=== PATIENT | female | born 1945 | race Hispanic/Latino ===

== ENCOUNTER → 2017-12-13 | Outpatient (CLI) | payer OTHER, MEDICARE ==
[~2017-12-13] MED LIST: AEC81 PO; ATEN50TA PO; CANA1TAB4 PO; LEVO112T7 PO; LISI40TA4 PO; NAPR220T57 PO; REGADENOSON 0.4 MG/5 ML PF SYG IVP SCH; ROSU10TA PO
== END | disposition home or self-care (01) ==
LOC: SHCH 07:56
PROVIDERS: ATTEND Internal Medicine Cardiovascular Disease
DX: I20.9 Angina pectoris, unspecified (principal); R06.02 Shortness of breath
CPT/HCPCS: 78452; 93017; 96374; A9500 ×2; J2785

== ENCOUNTER 2022-02-16 06:20 | Inpatient (IN) | payer OTHER ==
[2022-02-16] VITALS (49 sets, daily range): BP systolic 102–168; BP diastolic 44–85
[~2022-02-16] VITALS: Ht 152.4 cm; Wt 62.1 kg
[~2022-02-16 06:20] MED LIST changes: -ATEN50TA PO; +ATOR40TA71 PO; -CANA1TAB4 PO; +CLOP75TA14 PO; +EMPA10TA PO; +GLIP1TAB5 PO; -LISI40TA4 PO; +METO25TA6 PO; -NAPR220T57 PO; -REGADENOSON 0.4 MG/5 ML PF SYG IVP SCH; +RIVA2.5T PO; -ROSU10TA PO
[2022-02-16] MEDS ORDERED: NITROGLYCERIN 1GM OINT 1 INCH/1GM TD ONE (06:28)
[2022-02-16] MEDS ORDERED: NITROGLYCERIN 0.4 MG SL TAB SL PRN ×2 (06:30→08:30)
[2022-02-16] MEDS: ASPIRIN 325MG TAB PO SCH ×2 (06:32→06:46)
[2022-02-16] MEDS ORDERED: MORPHINE 2 MG SYG ONE (06:33)
[2022-02-16] MEDS ORDERED: ONDANSETRON 4MG INJ ONE (06:33)
[2022-02-16 06:36] LABS: BASOPHILS % (AUTO) 0.5 % (0.0-5.0); EOSINOPHILS % (AUTO) 5.8 % (0.0-8.0); HEMATOCRIT 35.4 % (36-48); LYMPHOCYTES % (AUTO) 28.8 % (21.0-51.0); MEAN CORPUSCULAR HGB CONC 32.8 g/dL (32.0-36.0); MEAN CORPUSCULAR VOLUME 94.7 fL (79-99); MONOCYTES % (AUTO) 9.5 % (3.0-13.0); NEUTROPHILS % (AUTO) 55.1 % (40.0-77.0); PLATELET COUNT (AUTO) 169 K/uL (130-400); RED BLOOD CELL COUNT(AUTO) 3.74 MIL/uL (4.00-5.50); RED CELL DISTRIBUTION WIDTH 13.3 % (11.0-15.5); WHITE BLOOD COUNT (AUTO) 7.4 K/uL (4.8-10.8)
[2022-02-16 06:51] LABS: PROTHROMBIN TIME 10.9 SEC (9.6-11.6)
[2022-02-16 06:52] LABS: PARTIAL THROMBOPLASTIN TIME 24.8 SEC (26.3-35.5)
[2022-02-16] MEDS ORDERED: IOHEXOL 350 MG/ML 100ML INFUS..BTL IV ONE ×2 (06:57→07:27)
[2022-02-16] MEDS ORDERED: PHENYLEPHRINE HCL 10 MG/ML 1ML VIAL IV ONE (06:57)
[2022-02-16] MEDS ORDERED: MIDAZOLAM HCL 1 MG/ML 2ML VIAL ONE (06:58)
[2022-02-16] MEDS ORDERED: LIDOCAINE HCL 400MG/20ML VIAL ONE (06:58)
[2022-02-16] MEDS ORDERED: FENTANYL CITRATE PF 50 MCG/1 ML 2ML VIAL ONE (06:58)
[2022-02-16 06:59] LABS: ALBUMIN 3.1 g/dL (3.5-5.0); BILIRUBIN,TOTAL 0.3 mg/dL (0.2-1.0); CREATININE 0.6 mg/dL (0.5-1.5); POTASSIUM 3.9 mmol/L (3.5-5.1); TOTAL PROTEIN, SERUM 6.5 g/dL (6.0-8.3)
[2022-02-16] MEDS ORDERED: MORPHINE 2 MG SYG IVP SCH (07:00)
[2022-02-16] MEDS ORDERED: NITROGLYCERIN 1GM OINT 1 INCH/1GM TD SCH (07:00)
[2022-02-16] MEDS ORDERED: ONDANSETRON 4MG INJ IVP SCH (07:00)
[2022-02-16] MEDS ORDERED: NITROGLYCERIN 50MG VIAL ONE (07:04)
[2022-02-16 07:05] LABS: B-TYPE NATRIURETIC PEPTIDE 274 pg/mL (0-100)
[2022-02-16] MEDS ORDERED: HEPARIN 10,000 UNIT/10ML (1,000 UNIT/ML) VIAL ONE (07:07)
[2022-02-16] MEDS ORDERED: BIVALIRUDIN 250 MG/VIAL IV ONE ×2 (07:07→07:52)
[2022-02-16 07:12] LABS: CHOLESTEROL 217 mg/dL (<200); HDL CHOLESTEROL 45 mg/dL (35-85); LDL DIRECT 151 mg/dL (0-99); TRIGLYCERIDES 121 mg/dL (30-200)
[2022-02-16 07:24] LABS: APPEARANCE,URINE Cloudy (CLEAR); BILIRUBIN,URINE Negative (NEGATIVE); COLOR,URINE Yellow (YELLOW); GLUCOSE, URINE (UA) Negative (NEGATIVE); KETONES,URINE Negative (NEGATIVE); LEUKOCYTE ESTERASE ,URINE Moderate (NEGATIVE); NITRATE,URINE Negative (NEGATIVE); OCCULT BLOOD,URINE Negative (NEGATIVE); PROTEIN,URINE Trace mg/dL (NEGATIVE)
[2022-02-16] MEDS ORDERED: ATROPINE 1MG SYG IVP ONE (07:27)
[2022-02-16 07:35] LABS: BACTERIA,URINE Few /HPF (None Seen); RBC,URINE 0-1 /HPF (0-1)
[2022-02-16] MEDS ORDERED: TICAGRELOR 90 MG TABLET ONE (07:56)
[2022-02-16] MEDS ORDERED: ASPIRIN 81MG CHEW TAB ONE (07:56)
[2022-02-16] MEDS ORDERED: DEXTROSE 50%-WATER 50 ML DISP.SYRIN IV PRN (08:30)
[2022-02-16] MEDS ORDERED: 0.9%NACL 1000ML 1,000 ML IV SCH (08:30)
[2022-02-16] MEDS ORDERED: GLUCAGON 1MG KIT 1 MG ML IM PRN (08:30)
[2022-02-16] MEDS: TICAGRELOR 90 MG TABLET PO SCH ×2 (09:00→20:38)
[2022-02-16] MEDS: METOPROLOL TARTRATE 25 MG TAB PO SCH ×2 (09:51→20:38)
[2022-02-16] MEDS: ASPIRIN 81MG CHEW TAB PO SCH (09:52)
[2022-02-16] MEDS: LISINOPRIL 10 MG TABLET PO SCH (09:52)
[2022-02-16] MEDS ORDERED: GUAIFENESIN-DM 200/20 MG 10 ML PO PRN (10:00)
[2022-02-16] MEDS ORDERED: IPRATROPIUM/ALBUTEROL SULFATE 3 ML SOLUTION IH PRN (10:00)
[2022-02-16] MEDS: INSULIN HUMULIN R 100 UNIT/ML 3ML SQ SCH ×3 (11:30→20:40)
[2022-02-16] MEDS ORDERED: FUROSEMIDE 40MG VIAL IV SCH (13:00)
[2022-02-16] MEDS ORDERED: CEFTRIAXONE 1G VIAL IVP SCH (14:00)
[2022-02-16] MEDS: ATORVASTATIN 40 MG TABLET PO SCH (20:38)
[2022-02-17] VITALS (12 sets, daily range): BP systolic 99–125; BP diastolic 45–62
[2022-02-17 03:23] LABS: HEMATOCRIT 35.4 % (36-48); MEAN CORPUSCULAR HEMOGLOBIN 30.6 pg (27.0-33.0); MEAN CORPUSCULAR HGB CONC 32.8 g/dL (32.0-36.0); MEAN CORPUSCULAR VOLUME 93.4 fL (79-99); RED BLOOD CELL COUNT(AUTO) 3.79 MIL/uL (4.00-5.50); RED CELL DISTRIBUTION WIDTH 13.4 % (11.0-15.5); WHITE BLOOD COUNT (AUTO) 7.2 K/uL (4.8-10.8)
[2022-02-17 03:45] LABS: CREATININE 0.8 mg/dL (0.5-1.5); POTASSIUM 3.5 mmol/L (3.5-5.1)
[2022-02-17] MEDS: ASPIRIN 325MG TAB PO SCH (06:30)
[2022-02-17] MEDS: INSULIN HUMULIN R 100 UNIT/ML 3ML SQ SCH ×4 (06:43→19:59)
[2022-02-17] MEDS ORDERED: FUROSEMIDE 20MG VIAL IV SCH (07:30)
[2022-02-17] MEDS ORDERED: FUROSEMIDE 20MG VIAL ONE (07:59)
[2022-02-17] MEDS ORDERED: LIDOCAINE HCL-MPF 1% 2ML VIAL IV PRN (08:00)
[2022-02-17] MEDS ORDERED: POTASSIUM CHLORIDE 20MEQ/100ML 100 ML IV PRN (08:00)
[2022-02-17] MEDS: ASPIRIN 81MG CHEW TAB PO SCH (08:05)
[2022-02-17] MEDS: TICAGRELOR 90 MG TABLET PO SCH ×2 (08:05→19:57)
[2022-02-17] MEDS: METOPROLOL TARTRATE 25 MG TAB PO SCH ×2 (08:05→19:57)
[2022-02-17] MEDS: CEFTRIAXONE 1G VIAL IVP SCH (08:34)
[2022-02-17] MEDS: LISINOPRIL 10 MG TABLET PO SCH (09:00)
[2022-02-17] MEDS: RANOLAZINE 500 MG TAB.SR.12H PO SCH ×2 (09:28→19:56)
[2022-02-17] MEDS: POTASSIUM CHLORIDE 10% ELIXIR 20 MEQ/15 ML UDCUP PO PRN ×2 (09:58→17:32)
[2022-02-17] MEDS: FUROSEMIDE 20MG VIAL IV SCH (17:02)
[2022-02-17] MEDS: ATORVASTATIN 40 MG TABLET PO SCH (19:56)
[2022-02-18] MEDS: ASPIRIN 325MG TAB PO SCH (01:30)
[2022-02-18 03:43] VITALS: BP 100/53
[2022-02-18] MEDS: FUROSEMIDE 20MG VIAL IV SCH (04:20)
[2022-02-18] MEDS: KCL 20 MEQ ERTAB PO PRN (04:26)
[2022-02-18] MEDS: INSULIN HUMULIN R 100 UNIT/ML 3ML SQ SCH ×4 (06:07→21:54)
[2022-02-18 07:57] VITALS: BP 90/47
[2022-02-18] MEDS: CEFTRIAXONE 1G VIAL IVP SCH (08:03)
[2022-02-18] MEDS: METOPROLOL TARTRATE 25 MG TAB PO SCH ×2 (08:04→20:19)
[2022-02-18] MEDS: LISINOPRIL 10 MG TABLET PO SCH (08:04)
[2022-02-18] MEDS: TICAGRELOR 90 MG TABLET PO SCH ×2 (08:05→20:19)
[2022-02-18] MEDS: RANOLAZINE 500 MG TAB.SR.12H PO SCH ×2 (08:05→20:19)
[2022-02-18] MEDS: ASPIRIN 81MG CHEW TAB PO SCH (08:05)
[2022-02-18 12:00] VITALS: BP 103/58
[2022-02-18 16:00] VITALS: BP 99/51
[2022-02-18] MEDS: FUROSEMIDE 20 MG TABLET PO SCH (16:20)
[2022-02-18] MEDS ORDERED: DOCUSATE SODIUM 100 MG CAP PO ONE (16:33)
[2022-02-18] MEDS ORDERED: POLYETHYLENE GLYCOL 3350 17 GM POWD.PACK ONE (16:34)
[2022-02-18] MEDS ORDERED: DOCUSATE SODIUM 100 MG CAP PO SCH (17:30)
[2022-02-18] MEDS ORDERED: POLYETHYLENE GLYCOL 3350 17 GM POWD.PACK PO ONE (17:30)
[2022-02-18 19:18] VITALS: BP 134/58
[2022-02-18] MEDS: ATORVASTATIN 40 MG TABLET PO SCH (20:19)
[2022-02-18 23:07] VITALS: BP 110/59
[2022-02-19 03:40] VITALS: BP 139/74
[2022-02-19 04:09] LABS: BASOPHILS % (AUTO) 0.4 % (0.0-5.0); EOSINOPHILS % (AUTO) 6.4 % (0.0-8.0); LYMPHOCYTES % (AUTO) 16.6 % (21.0-51.0); MEAN CORPUSCULAR HEMOGLOBIN 29.7 pg (27.0-33.0); MEAN CORPUSCULAR HGB CONC 32.4 g/dL (32.0-36.0); MEAN CORPUSCULAR VOLUME 91.6 fL (79-99); MONOCYTES % (AUTO) 11.5 % (3.0-13.0); NEUTROPHILS % (AUTO) 64.8 % (40.0-77.0); PLATELET COUNT (AUTO) 162 K/uL (130-400); RED BLOOD CELL COUNT(AUTO) 4.04 MIL/uL (4.00-5.50); RED CELL DISTRIBUTION WIDTH 13.2 % (11.0-15.5); WHITE BLOOD COUNT (AUTO) 6.7 K/uL (4.8-10.8)
[2022-02-19 04:37] LABS: ALBUMIN 2.7 g/dL (3.5-5.0); BILIRUBIN,TOTAL 0.5 mg/dL (0.2-1.0); CREATININE 0.8 mg/dL (0.5-1.5); MAGNESIUM 1.9 mg/dL (1.80-2.40); PHOSPHORUS 4.5 mg/dL (2.5-4.9); POTASSIUM 3.6 mmol/L (3.5-5.1); TOTAL PROTEIN, SERUM 6.8 g/dL (6.0-8.3)
[2022-02-19] MEDS: POTASSIUM CHLORIDE 10% ELIXIR 20 MEQ/15 ML UDCUP PO PRN (04:54)
[2022-02-19] MEDS: ASPIRIN 325MG TAB PO SCH (05:25)
[2022-02-19] MEDS: INSULIN HUMULIN R 100 UNIT/ML 3ML SQ SCH ×2 (05:26→12:19)
[2022-02-19 08:00] VITALS: BP 121/67
[2022-02-19] MEDS: RANOLAZINE 500 MG TAB.SR.12H PO SCH (08:51)
[2022-02-19] MEDS: CEFTRIAXONE 1G VIAL IVP SCH (08:51)
[2022-02-19] MEDS: FUROSEMIDE 20 MG TABLET PO SCH ×2 (08:52→17:04)
[2022-02-19] MEDS: ASPIRIN 81MG CHEW TAB PO SCH (08:52)
[2022-02-19] MEDS: TICAGRELOR 90 MG TABLET PO SCH (08:53)
[2022-02-19] MEDS: KCL 20 MEQ ERTAB PO PRN (08:56)
[2022-02-19] MEDS ORDERED: LACTULOSE 20 GM/30 ML UDCUP PO SCH (09:00)
[2022-02-19] MEDS ORDERED: LISINOPRIL 10 MG TABLET PO SCH (09:00)
[2022-02-19] MEDS ORDERED: METOPROLOL SUCCINATE 50 MG TAB.SR.24H PO SCH (09:00)
[2022-02-19 11:38] VITALS: BP 137/69
[2022-02-19 16:00] VITALS: BP 123/75
[2022-02-19] MEDS ORDERED: FURO20TA4 PO (16:24)
[2022-02-19] MEDS ORDERED: TICA90TA PO (16:25)
[2022-02-19] MEDS ORDERED: METO-391 PO (16:25)
[2022-02-19] MEDS ORDERED: ASPI-1197 PO (16:26)
[2022-02-19] MEDS ORDERED: RANO500T3 PO (16:26)
[2022-02-19] MEDS ORDERED: LISI5TAB21 PO (16:26)
== END 2022-02-19 17:40 | disposition home or self-care (01) | DRG 248 ==
LOC: EDH 06:20 → EDHIP 06:40 → 2BH 08:45 → 2DH 02-17 17:28
PROVIDERS: ADMIT Internal Medicine Pulmonary Disease; ATTEND Internal Medicine Pulmonary Disease
PROC: 02703EZ Dilation of Coronary Artery, One Artery with Two Intraluminal Devices, Percutaneous Approach (ICD-10-PCS; principal; 2022-02-16)
PROC: 4A023N7 Measurement of Cardiac Sampling and Pressure, Left Heart, Percutaneous Approach (ICD-10-PCS; 2022-02-16)
PROC: B2111ZZ Fluoroscopy of Multiple Coronary Arteries using Low Osmolar Contrast (ICD-10-PCS; 2022-02-16)
PROC: B2151ZZ Fluoroscopy of Left Heart using Low Osmolar Contrast (ICD-10-PCS; 2022-02-16)
DX: I21.19 ST elevation (STEMI) myocardial infarction involving other coronary artery of inferior wall (principal); I50.43 Acute on chronic combined systolic (congestive) and diastolic (congestive) heart failure; N39.0 Urinary tract infection, site not specified; I11.0 Hypertensive heart disease with heart failure; E78.00 Pure hypercholesterolemia, unspecified; E78.5 Hyperlipidemia, unspecified; E03.9 Hypothyroidism, unspecified; E11.65 Type 2 diabetes mellitus with hyperglycemia; I25.10 Atherosclerotic heart disease of native coronary artery without angina pectoris; M19.90 Unspecified osteoarthritis, unspecified site; I25.2 Old myocardial infarction; E11.51 Type 2 diabetes mellitus with diabetic peripheral angiopathy without gangrene; Z79.899 Other long term (current) drug therapy; I87.2 Venous insufficiency (chronic) (peripheral); K21.9 Gastro-esophageal reflux disease without esophagitis; Z87.440 Personal history of urinary (tract) infections
CPT/HCPCS: 36415; 71045; 80048; 80053; 80061; 81001; 82550; 82948; 83735; 83874; 83880; 84100; 84484; 85025; 85027; 85610; 85730; 86850; 86900; 86901; 87088; 92928; 92929; 92941; 93005; 93306; 93356; 93458; 94640; 99156; 99157; C1725; C1769; C1887; C1894; G0378; J0461; J0583; J0696; J1644; J1815; J1940; J2250; J2370; J2405; J3010; J3490; J7030; Q9967

== ENCOUNTER 2022-05-15 10:55 | Observation (INO) | payer OTHER ==
[~2022-05-15] VITALS: Ht 152.4 cm; Wt 62.2 kg
[~2022-05-15 10:55] MED LIST changes: -AEC81 PO; +ASPI-1197 PO; -CLOP75TA14 PO; -EMPA10TA PO; -LEVO112T7 PO; +LISI5TAB21 PO; +METO-391 PO; -METO25TA6 PO; +NITR0.4T50 SL; -RIVA2.5T PO
[2022-05-15 11:48] LABS: BASOPHILS % (AUTO) 0.7 % (0.0-5.0); EOSINOPHILS % (AUTO) 3.3 % (0.0-8.0); HEMATOCRIT 36.1 % (36-48); LYMPHOCYTES % (AUTO) 28.4 % (21.0-51.0); MEAN CORPUSCULAR HEMOGLOBIN 29.8 pg (27.0-33.0); MEAN CORPUSCULAR HGB CONC 29.9 g/dL (32.0-36.0); MEAN CORPUSCULAR VOLUME 99.4 fL (79-99); MONOCYTES % (AUTO) 8.1 % (3.0-13.0); PLATELET COUNT (AUTO) 327 K/uL (130-400); RED BLOOD CELL COUNT(AUTO) 3.63 MIL/uL (4.00-5.50); RED CELL DISTRIBUTION WIDTH 16.1 % (11.0-15.5); WHITE BLOOD COUNT (AUTO) 7.5 K/uL (4.8-10.8)
[2022-05-15 11:56] LABS: POTASSIUM 4.6 mmol/L (3.5-5.1)
[2022-05-15 12:05] LABS: ALBUMIN 2.4 g/dL (3.5-5.0); BILIRUBIN,TOTAL 0.4 mg/dL (0.2-1.0); TOTAL PROTEIN, SERUM 6.5 g/dL (6.0-8.3)
[2022-05-15] MEDS ORDERED: ASPIRIN 325MG TAB PO ONE (13:00)
[2022-05-15] MEDS ORDERED: NITROGLYCERIN 1GM OINT 1 INCH/1GM TD ONE (13:00)
[2022-05-15 13:42] LABS: APPEARANCE,URINE Clear (CLEAR); BILIRUBIN,URINE Negative (NEGATIVE); COLOR,URINE Yellow (YELLOW); GLUCOSE, URINE (UA) Negative (NEGATIVE); KETONES,URINE Negative (NEGATIVE); LEUKOCYTE ESTERASE ,URINE Negative (NEGATIVE); NITRATE,URINE Negative (NEGATIVE); OCCULT BLOOD,URINE Negative (NEGATIVE); PH,URINE 6.5 (5.0-8.0); PROTEIN,URINE Negative (NEGATIVE); UROBILINOGEN,URINE 0.2 mg/dL (0.2-1.0)
[2022-05-15] MEDS ORDERED: ACETAMINOPHEN 650 MG SUPPOSITORY RC PRN (15:00)
[2022-05-15] MEDS ORDERED: LACTULOSE 20 GM/30 ML UDCUP PO PRN (15:00)
[2022-05-15] MEDS ORDERED: HYDROCODONE/ACETAMINOPHEN 5/325 MG TAB PO PRN (15:00)
[2022-05-15] MEDS ORDERED: HYDRALAZINE 20MG/ML VIAL IV PRN (15:00)
[2022-05-15] MEDS ORDERED: TEMAZEPAM 15 MG CAPSULE PO PRN (15:00)
[2022-05-15] MEDS ORDERED: DOCUSATE SODIUM 100 MG CAP PO PRN (15:00)
[2022-05-15] MEDS ORDERED: ALBUTEROL 0.083% 2.5 MG/3 ML INH IH PRN (15:00)
[2022-05-15] MEDS ORDERED: CLONIDINE HCL 0.1 MG TABLET PO PRN (15:00)
[2022-05-15] MEDS ORDERED: ACETAMINOPHEN 325 MG TAB PO PRN (15:00)
[2022-05-15] MEDS ORDERED: ONDANSETRON 4MG INJ IVP PRN (15:00)
[2022-05-15] MEDS ORDERED: LABETALOL 20MG SYG IV PRN (15:00)
[2022-05-15] MEDS: BUMETANIDE 1MG/4ML VIAL IVP SCH ×2 (16:01→21:25)
[2022-05-15] MEDS: INSULIN HUMULIN R 100 UNIT/ML 3ML SQ SCH ×2 (16:30→21:00)
[2022-05-15 17:44] VITALS: BP 100/58
[2022-05-15 20:00] VITALS: BP 98/62
[2022-05-15] MEDS: MIDODRINE HCL 5 MG TABLET PO SCH (21:35)
[2022-05-16 03:42] LABS: BASOPHILS % (AUTO) 0.6 % (0.0-5.0); EOSINOPHILS % (AUTO) 3.5 % (0.0-8.0); HEMATOCRIT 30.8 % (36-48); MEAN CORPUSCULAR HEMOGLOBIN 30.2 pg (27.0-33.0); MEAN CORPUSCULAR HGB CONC 30.5 g/dL (32.0-36.0); MONOCYTES % (AUTO) 11.1 % (3.0-13.0); NEUTROPHILS % (AUTO) 57.5 % (40.0-77.0); PLATELET COUNT (AUTO) 314 K/uL (130-400); RED BLOOD CELL COUNT(AUTO) 3.11 MIL/uL (4.00-5.50); WHITE BLOOD COUNT (AUTO) 6.3 K/uL (4.8-10.8)
[2022-05-16 04:00] LABS: CREATININE 1.1 mg/dL (0.5-1.5); MAGNESIUM 1.8 mg/dL (1.80-2.40); PHOSPHORUS 4.2 mg/dL (2.5-4.9); POTASSIUM 4.7 mmol/L (3.5-5.1)
[2022-05-16 04:23] LABS: B-TYPE NATRIURETIC PEPTIDE 1630 pg/mL (0-100)
[2022-05-16] MEDS: INSULIN HUMULIN R 100 UNIT/ML 3ML SQ SCH ×4 (06:54→20:37)
[2022-05-16 07:15] VITALS: BP 105/67
[2022-05-16] MEDS: PANTOPRAZOLE 40 MG TAB DR PO SCH (08:56)
[2022-05-16] MEDS: SIMVASTATIN 20 MG TABLET PO SCH (08:56)
[2022-05-16] MEDS: MIDODRINE HCL 5 MG TABLET PO SCH ×3 (08:57→20:37)
[2022-05-16] MEDS: BUMETANIDE 1MG/4ML VIAL IVP SCH ×2 (08:57→20:36)
[2022-05-16] MEDS: ASPIRIN 81MG CHEW TAB PO SCH (08:57)
[2022-05-16] MEDS: ENOXAPARIN SODIUM 40 MG/0.4 ML SYRINGE SQ SCH (08:58)
[2022-05-16] MEDS ORDERED: IOHEXOL 350 MG/ML 100ML INFUS..BTL IV ONE (10:10)
[2022-05-16 11:15] VITALS: BP 97/33
[2022-05-16 15:15] VITALS: BP 106/56
[2022-05-16 20:09] VITALS: BP 98/58
[2022-05-17] VITALS: BP 84/56
[2022-05-17 04:00] VITALS: BP 98/59
[2022-05-17] MEDS: INSULIN HUMULIN R 100 UNIT/ML 3ML SQ SCH ×3 (06:37→16:29)
[2022-05-17 08:00] VITALS: BP 96/59
[2022-05-17 08:25] LABS: CREATININE 1.1 mg/dL (0.5-1.5); MAGNESIUM 1.7 mg/dL (1.80-2.40); POTASSIUM 4.1 mmol/L (3.5-5.1)
[2022-05-17] MEDS: PANTOPRAZOLE 40 MG TAB DR PO SCH (09:28)
[2022-05-17] MEDS: SIMVASTATIN 20 MG TABLET PO SCH (09:29)
[2022-05-17] MEDS: BUMETANIDE 1MG/4ML VIAL IVP SCH (09:29)
[2022-05-17] MEDS: MIDODRINE HCL 5 MG TABLET PO SCH ×2 (09:29→14:31)
[2022-05-17] MEDS: ASPIRIN 81MG CHEW TAB PO SCH (09:29)
[2022-05-17] MEDS: ENOXAPARIN SODIUM 40 MG/0.4 ML SYRINGE SQ SCH (09:31)
[2022-05-17] MEDS ORDERED: BUME1TAB7 PO (10:06)
[2022-05-17] MEDS ORDERED: METO25TA6 PO (10:07)
[2022-05-17] MEDS ORDERED: LISINOPRIL 5 MG TABLET PO SCH (10:30)
[2022-05-17] MEDS ORDERED: METOPROLOL TARTRATE 25 MG TAB PO SCH (10:30)
[2022-05-17 11:39] VITALS: BP 105/69
[2022-05-17] MEDS ORDERED: Midodrine Hcl PO (14:42)
== END 2022-05-17 17:30 | disposition home or self-care (01) ==
LOC: EDH 10:55 → EDHIP 14:47 → 4CH 17:15 → 3CH 05-17 11:44
PROVIDERS: ADMIT Internal Medicine Critical Care Medicine; ATTEND Internal Medicine Critical Care Medicine
DX: U07.1 COVID-19 (principal); I50.43 Acute on chronic combined systolic (congestive) and diastolic (congestive) heart failure; I25.10 Atherosclerotic heart disease of native coronary artery without angina pectoris; I95.9 Hypotension, unspecified; I24.9 Acute ischemic heart disease, unspecified; E78.5 Hyperlipidemia, unspecified; E11.9 Type 2 diabetes mellitus without complications; E78.00 Pure hypercholesterolemia, unspecified; E87.70 Fluid overload, unspecified; Z95.1 Presence of aortocoronary bypass graft; Z79.899 Other long term (current) drug therapy
CPT/HCPCS: 36415 ×3; 71045; 71270; 80048 ×2; 80053; 81003; 82948 ×9; 83735 ×2; 83880 ×3; 84100; 84145; 84484 ×4; 85025 ×2; 85378; 87635; 87804 ×2; 93005; 94664; 94760 ×2; 96372 ×2; 96374; 96375; 96376 ×3; 97039; 97161; 99285; C9803; G0378 ×49; J1650 ×2; J2405; J3490 ×5; Q9967

== ENCOUNTER 2022-05-23 10:08 | Inpatient (IN) | payer OTHER ==
[~2022-05-23] VITALS: Ht 152.4 cm; Wt 58.1 kg
[~2022-05-23 10:08] MED LIST changes: +BUME1TAB7 PO; -LISI5TAB21 PO; -METO-391 PO; +Midodrine Hcl PO
[2022-05-23] MEDS ORDERED: ONDANSETRON 4MG INJ ONE (10:26)
[2022-05-23] MEDS ORDERED: ONDANSETRON 4MG INJ IVP ONE (10:30)
[2022-05-23] MEDS ORDERED: BUMETANIDE 1MG/4ML VIAL ONE (10:32)
[2022-05-23 10:45] LABS: ABG BASE EXCESS -5.3 mmol/L (-2.0-3.0); ABG HCO3 19.3 mmol/L (21.0-28.0); ABG OXYGEN SATURATION 86.1 % (95.0-99.0); ABG PCO2 34 mmHg (32-45)
[2022-05-23 10:45] LABS: HEMATOCRIT 33.7 % (36-48); MEAN CORPUSCULAR HEMOGLOBIN 29.8 pg (27.0-33.0); MEAN CORPUSCULAR HGB CONC 30.3 g/dL (32.0-36.0); MEAN CORPUSCULAR VOLUME 98.5 fL (79-99); MONOCYTES % (AUTO) 8.3 % (3.0-13.0); NEUTROPHILS % (AUTO) 56.3 % (40.0-77.0); PLATELET COUNT (AUTO) 275 K/uL (130-400); RED BLOOD CELL COUNT(AUTO) 3.42 MIL/uL (4.00-5.50); RED CELL DISTRIBUTION WIDTH 15.6 % (11.0-15.5); WHITE BLOOD COUNT (AUTO) 8.2 K/uL (4.8-10.8)
[2022-05-23 10:59] LABS: CREATININE 1.6 mg/dL (0.5-1.5)
[2022-05-23 11:04] LABS: ALBUMIN 2.7 g/dL (3.5-5.0); MAGNESIUM 1.8 mg/dL (1.80-2.40); TOTAL PROTEIN, SERUM 6.9 g/dL (6.0-8.3)
[2022-05-23 11:13] LABS: APPEARANCE,URINE CLEAR (CLEAR); BILIRUBIN,URINE NEGATIVE (NEGATIVE); COLOR,URINE YELLOW (YELLOW); GLUCOSE, URINE (UA) NEGATIVE (NEGATIVE); KETONES,URINE NEGATIVE (NEGATIVE); LEUKOCYTE ESTERASE ,URINE TRACE (NEGATIVE); NITRATE,URINE NEGATIVE (NEGATIVE); OCCULT BLOOD,URINE NEGATIVE (NEGATIVE); PROTEIN,URINE NEGATIVE (NEGATIVE); UROBILINOGEN,URINE 0.2 mg/dL (0.2-1.0)
[2022-05-23 11:50] LABS: B-TYPE NATRIURETIC PEPTIDE 2450 pg/mL (0-100)
[2022-05-23 11:51] LABS: BACTERIA,URINE Few /HPF (None Seen); MUCUS,URINE Few LPF (None Seen); RBC,URINE 0-1 /HPF (0-1); SQUAMOUS EPITHELIAL CELL,UR Few /HPF (0-2)
[2022-05-23 11:52] LABS: TRANSITIONAL EPI CELLS,URINE Few /HPF (None Seen)
[2022-05-23 12:24] LABS: INR 0.96 (0.85-1.15); PROTHROMBIN TIME 10.5 SEC (9.6-11.6)
[2022-05-23 12:26] LABS: PARTIAL THROMBOPLASTIN TIME 24.8 SEC (26.3-35.5)
[2022-05-23] MEDS ORDERED: DEXTROSE 50%-WATER 50 ML DISP.SYRIN IV PRN (13:30)
[2022-05-23] MEDS ORDERED: ONDANSETRON 4MG INJ IVP PRN (13:30)
[2022-05-23] MEDS ORDERED: LIDOCAINE HCL-MPF 1% 2ML VIAL IV PRN ×2 (13:30)
[2022-05-23] MEDS ORDERED: ACETAMINOPHEN 650 MG SUPPOSITORY RC PRN (13:30)
[2022-05-23] MEDS ORDERED: GLUCAGON 1MG KIT 1 MG ML IM PRN (13:30)
[2022-05-23] MEDS ORDERED: ACETAMINOPHEN 325 MG TAB PO PRN (13:30)
[2022-05-23] MEDS ORDERED: MORPHINE 2 MG SYG IVP PRN (13:30)
[2022-05-23] MEDS ORDERED: POTASSIUM CHLORIDE 20MEQ/100ML 100 ML IV PRN ×2 (13:30)
[2022-05-23] MEDS ORDERED: CLONIDINE HCL 0.1 MG TABLET PO PRN (13:30)
[2022-05-23] MEDS ORDERED: POTASSIUM CHLORIDE 10% ELIXIR 20 MEQ/15 ML UDCUP PO PRN (13:30)
[2022-05-23 15:21] VITALS: BP 97/48
[2022-05-23] MEDS: INSULIN HUMULIN R 100 UNIT/ML 3ML SQ SCH ×2 (16:30→21:00)
[2022-05-23 16:40] LABS: CREATININE 1.5 mg/dL (0.5-1.5); POTASSIUM 5.7 mmol/L (3.5-5.1)
[2022-05-23 19:30] VITALS: BP 114/73
[2022-05-23] MEDS: ATORVASTATIN 40 MG TABLET PO SCH (20:25)
[2022-05-23] MEDS: BUMETANIDE 1MG/4ML VIAL IVP SCH (20:25)
[2022-05-23] MEDS: METOPROLOL TARTRATE 25 MG TAB PO SCH (20:26)
[2022-05-23] MEDS: ENOXAPARIN SODIUM 60 MG/0.6 ML SQ SCH (20:31)
[2022-05-23] MEDS ORDERED: METOPROLOL TARTRATE 25 MG TAB PO SCH (21:00)
[2022-05-24] VITALS (7 sets, daily range): BP systolic 87–118; BP diastolic 53–70
[2022-05-24 02:03] LABS: BASOPHILS % (AUTO) 1.4 % (0.0-5.0); EOSINOPHILS % (AUTO) 1.4 % (0.0-8.0); LYMPHOCYTES % (AUTO) 25.3 % (21.0-51.0); MEAN CORPUSCULAR HEMOGLOBIN 29.9 pg (27.0-33.0); MEAN CORPUSCULAR HGB CONC 30.6 g/dL (32.0-36.0); MEAN CORPUSCULAR VOLUME 97.5 fL (79-99); MONOCYTES % (AUTO) 10.2 % (3.0-13.0); NEUTROPHILS % (AUTO) 61.4 % (40.0-77.0); PLATELET COUNT (AUTO) 234 K/uL (130-400); RED BLOOD CELL COUNT(AUTO) 3.18 MIL/uL (4.00-5.50); RED CELL DISTRIBUTION WIDTH 15.5 % (11.0-15.5); WHITE BLOOD COUNT (AUTO) 5.9 K/uL (4.8-10.8)
[2022-05-24 02:47] LABS: CREATININE 1.6 mg/dL (0.5-1.5); MAGNESIUM 1.7 mg/dL (1.80-2.40); PHOSPHORUS 4.7 mg/dL (2.5-4.9); POTASSIUM 5.1 mmol/L (3.5-5.1)
[2022-05-24] MEDS: INSULIN HUMULIN R 100 UNIT/ML 3ML SQ SCH ×4 (06:48→20:14)
[2022-05-24] MEDS: METOPROLOL TARTRATE 25 MG TAB PO SCH ×2 (08:49→20:18)
[2022-05-24] MEDS: ASPIRIN 81 MG EC TAB PO SCH (08:49)
[2022-05-24] MEDS: ENOXAPARIN SODIUM 60 MG/0.6 ML SQ SCH (08:50)
[2022-05-24] MEDS: BUMETANIDE 1MG/4ML VIAL IVP SCH ×2 (08:50→16:55)
[2022-05-24] MEDS ORDERED: FUROSEMIDE 20MG VIAL IV SCH (10:00)
[2022-05-24] MEDS: MAGNESIUM 2GM PREMIX 50ML 50 ML IV PRN (10:38)
[2022-05-24] MEDS: CLOPIDOGREL 75MG TAB PO SCH (16:55)
[2022-05-24] MEDS: ATORVASTATIN 40 MG TABLET PO SCH (20:21)
[2022-05-25] VITALS (7 sets, daily range): BP systolic 91–111; BP diastolic 50–71
[2022-05-25] MEDS: BUMETANIDE 1MG/4ML VIAL IVP SCH ×3 (01:27→18:40)
[2022-05-25 04:21] LABS: BASOPHILS % (AUTO) 1.3 % (0.0-5.0); EOSINOPHILS % (AUTO) 3.5 % (0.0-8.0); HEMATOCRIT 30.4 % (36-48); LYMPHOCYTES % (AUTO) 34.2 % (21.0-51.0); MEAN CORPUSCULAR HEMOGLOBIN 30.4 pg (27.0-33.0); MEAN CORPUSCULAR HGB CONC 31.3 g/dL (32.0-36.0); MEAN CORPUSCULAR VOLUME 97.1 fL (79-99); MONOCYTES % (AUTO) 12.2 % (3.0-13.0); NEUTROPHILS % (AUTO) 48.4 % (40.0-77.0); PLATELET COUNT (AUTO) 246 K/uL (130-400); RED BLOOD CELL COUNT(AUTO) 3.13 MIL/uL (4.00-5.50); RED CELL DISTRIBUTION WIDTH 15.4 % (11.0-15.5); WHITE BLOOD COUNT (AUTO) 5.5 K/uL (4.8-10.8)
[2022-05-25 04:38] LABS: CREATININE 1.5 mg/dL (0.5-1.5); MAGNESIUM 1.9 mg/dL (1.80-2.40); POTASSIUM 3.7 mmol/L (3.5-5.1)
[2022-05-25] MEDS: INSULIN HUMULIN R 100 UNIT/ML 3ML SQ SCH ×4 (05:45→20:23)
[2022-05-25] MEDS: METOPROLOL TARTRATE 25 MG TAB PO SCH (08:33)
[2022-05-25] MEDS: ASPIRIN 81 MG EC TAB PO SCH (08:33)
[2022-05-25] MEDS: CLOPIDOGREL 75MG TAB PO SCH (08:34)
[2022-05-25] MEDS: ENOXAPARIN SODIUM 60 MG/0.6 ML SQ SCH (08:34)
[2022-05-25] MEDS: MAGNESIUM 2GM PREMIX 50ML 50 ML IV PRN (08:35)
[2022-05-25] MEDS: CARVEDILOL 3.125 MG TABLET PO SCH ×3 (11:30→20:22)
[2022-05-25] MEDS: SACUBITRIL/VALSARTAN 1 EACH TABLET PO SCH (20:36)
[2022-05-25] MEDS: ATORVASTATIN 40 MG TABLET PO SCH (20:36)
[2022-05-26] VITALS (8 sets, daily range): BP systolic 82–106; BP diastolic 40–63
[2022-05-26] MEDS: BUMETANIDE 1MG/4ML VIAL IVP SCH ×2 (01:30→09:59)
[2022-05-26 03:56] LABS: BASOPHILS % (AUTO) 0.8 % (0.0-5.0); EOSINOPHILS % (AUTO) 1.7 % (0.0-8.0); HEMATOCRIT 33.1 % (36-48); MEAN CORPUSCULAR HEMOGLOBIN 29.5 pg (27.0-33.0); MEAN CORPUSCULAR HGB CONC 31.4 g/dL (32.0-36.0); MEAN CORPUSCULAR VOLUME 93.8 fL (79-99); MONOCYTES % (AUTO) 10.8 % (3.0-13.0); NEUTROPHILS % (AUTO) 59.3 % (40.0-77.0); PLATELET COUNT (AUTO) 246 K/uL (130-400); RED BLOOD CELL COUNT(AUTO) 3.53 MIL/uL (4.00-5.50); RED CELL DISTRIBUTION WIDTH 15.1 % (11.0-15.5); WHITE BLOOD COUNT (AUTO) 5.2 K/uL (4.8-10.8)
[2022-05-26 04:14] LABS: CREATININE 1.2 mg/dL (0.5-1.5); POTASSIUM 2.9 mmol/L (3.5-5.1)
[2022-05-26] MEDS: INSULIN HUMULIN R 100 UNIT/ML 3ML SQ SCH ×4 (05:59→21:00)
[2022-05-26] MEDS: CARVEDILOL 3.125 MG TABLET PO SCH (09:00)
[2022-05-26] MEDS: ASPIRIN 81 MG EC TAB PO SCH (09:59)
[2022-05-26] MEDS: CLOPIDOGREL 75MG TAB PO SCH (09:59)
[2022-05-26] MEDS: ENOXAPARIN SODIUM 60 MG/0.6 ML SQ SCH (09:59)
[2022-05-26] MEDS: KCL 20 MEQ ERTAB PO PRN ×2 (15:13→17:43)
[2022-05-26] MEDS: SACUBITRIL/VALSARTAN 1 EACH TABLET PO SCH (20:04)
[2022-05-26] MEDS: BUMETANIDE 1 MG TAB PO SCH (21:43)
[2022-05-26] MEDS: ATORVASTATIN 40 MG TABLET PO SCH (21:43)
[2022-05-27 03:42] VITALS: BP 104/64
[2022-05-27 04:22] LABS: BASOPHILS % (AUTO) 0.9 % (0.0-5.0); EOSINOPHILS % (AUTO) 2.5 % (0.0-8.0); HEMATOCRIT 31.5 % (36-48); LYMPHOCYTES % (AUTO) 41.1 % (21.0-51.0); MEAN CORPUSCULAR HEMOGLOBIN 30.4 pg (27.0-33.0); MEAN CORPUSCULAR HGB CONC 31.7 g/dL (32.0-36.0); MEAN CORPUSCULAR VOLUME 95.7 fL (79-99); MONOCYTES % (AUTO) 11.4 % (3.0-13.0); NEUTROPHILS % (AUTO) 43.9 % (40.0-77.0); PLATELET COUNT (AUTO) 254 K/uL (130-400); RED BLOOD CELL COUNT(AUTO) 3.29 MIL/uL (4.00-5.50); RED CELL DISTRIBUTION WIDTH 15.1 % (11.0-15.5); WHITE BLOOD COUNT (AUTO) 5.6 K/uL (4.8-10.8)
[2022-05-27 04:31] LABS: CREATININE 1.4 mg/dL (0.5-1.5); MAGNESIUM 1.7 mg/dL (1.80-2.40)
[2022-05-27] MEDS: MAGNESIUM 2GM PREMIX 50ML 50 ML IV PRN (05:15)
[2022-05-27] MEDS: INSULIN HUMULIN R 100 UNIT/ML 3ML SQ SCH (06:01)
[2022-05-27] MEDS: CLOPIDOGREL 75MG TAB PO SCH (08:23)
[2022-05-27] MEDS: BUMETANIDE 1 MG TAB PO SCH (08:23)
[2022-05-27] MEDS: ASPIRIN 81 MG EC TAB PO SCH (08:23)
[2022-05-27] MEDS: ENOXAPARIN SODIUM 60 MG/0.6 ML SQ SCH (08:24)
[2022-05-27 08:40] VITALS: BP 86/52
== END 2022-05-27 11:20 | disposition home or self-care (01) | DRG 291 ==
LOC: EDH 10:08 → EDHIP 13:03 → OBSVTOIN 13:03 → 2DH 15:22
PROVIDERS: ADMIT Internal Medicine; ATTEND Internal Medicine
PROC: 5A09357 Assistance with Respiratory Ventilation, Less than 24 Consecutive Hours, Continuous Positive Airway Pressure (ICD-10-PCS; principal; 2022-05-23)
DX: I13.0 Hypertensive heart and chronic kidney disease with heart failure and stage 1 through stage 4 chronic kidney disease, or unspecified chronic kidney disease (principal); I50.43 Acute on chronic combined systolic (congestive) and diastolic (congestive) heart failure; E87.2 Acidosis; I34.0 Nonrheumatic mitral (valve) insufficiency; I25.10 Atherosclerotic heart disease of native coronary artery without angina pectoris; E11.51 Type 2 diabetes mellitus with diabetic peripheral angiopathy without gangrene; E78.00 Pure hypercholesterolemia, unspecified; I25.5 Ischemic cardiomyopathy; N18.30 Chronic kidney disease, stage 3 unspecified; E11.65 Type 2 diabetes mellitus with hyperglycemia; E11.22 Type 2 diabetes mellitus with diabetic chronic kidney disease; I87.2 Venous insufficiency (chronic) (peripheral); E03.9 Hypothyroidism, unspecified; Z95.5 Presence of coronary angioplasty implant and graft; Z20.822 Contact with and (suspected) exposure to COVID-19; Z88.8 Allergy status to other drugs, medicaments and biological substances; Z79.899 Other long term (current) drug therapy; Z95.1 Presence of aortocoronary bypass graft; Z79.82 Long term (current) use of aspirin; I25.2 Old myocardial infarction
CPT/HCPCS: 36415; 36600; 71045; 80048; 80053; 81001; 82435; 82550; 82803; 82947; 82948; 83605; 83615; 83735; 83880; 84100; 84132; 84145; 84155; 84295; 84484; 85018; 85025; 85610; 85730; 87077; 87088; 87186; 87635; 87804; 93005; 93306; 93356; 94660; 99291; C9803; G0378; J1650; J1815; J2405; J3475; J3480; J3490

== ENCOUNTER → 2022-06-29 | Outpatient (CLI) | payer OTHER, MEDICARE ==
[~2022-06-29] MED LIST changes: -BUME1TAB7 PO; -Midodrine Hcl PO
[2022-06-29 12:56] LABS: CREATININE 1.1 mg/dL (0.5-1.5)
[2022-06-29 13:04] LABS: POTASSIUM 3.9 mmol/L (3.5-5.1)
== END | disposition home or self-care (01) ==
LOC: LAB 10:26
PROVIDERS: ATTEND Internal Medicine Cardiovascular Disease
DX: I50.41 Acute combined systolic (congestive) and diastolic (congestive) heart failure (principal)
CPT/HCPCS: 36415; 80048; 83880

== ENCOUNTER → 2022-09-14 | Outpatient (CLI) | payer OTHER, MEDICARE | END | disposition home or self-care (01) | LOC: SHCH 13:22 | PROVIDERS: ATTEND Internal Medicine Cardiovascular Disease | DX: I87.2 Venous insufficiency (chronic) (peripheral) (principal); I70.293 Other atherosclerosis of native arteries of extremities, bilateral legs | CPT/HCPCS: 93925; 93970 ==

== ENCOUNTER → 2022-12-05 | Outpatient (CLI) | payer OTHER, MEDICARE ==
[2022-12-05 14:53] LABS: BASOPHILS % (AUTO) 0.4 % (0.0-5.0); EOSINOPHILS % (AUTO) 6.1 % (0.0-8.0); HEMATOCRIT 34.4 % (36-48); LYMPHOCYTES % (AUTO) 14.5 % (21.0-51.0); MEAN CORPUSCULAR HEMOGLOBIN 26.6 pg (27.0-33.0); MEAN CORPUSCULAR HGB CONC 29.9 g/dL (32.0-36.0); MEAN CORPUSCULAR VOLUME 88.9 fL (79-99); MONOCYTES % (AUTO) 7.9 % (3.0-13.0); NEUTROPHILS % (AUTO) 70.8 % (40.0-77.0); PLATELET COUNT (AUTO) 316 K/uL (130-400); RED BLOOD CELL COUNT(AUTO) 3.87 MIL/uL (4.00-5.50); RED CELL DISTRIBUTION WIDTH 15.7 % (11.0-15.5); WHITE BLOOD COUNT (AUTO) 6.8 K/uL (4.8-10.8)
[2022-12-05 15:01] LABS: INR 0.96 (0.85-1.15); PROTHROMBIN TIME 10.5 SEC (9.6-11.6)
[2022-12-05 15:03] LABS: PARTIAL THROMBOPLASTIN TIME 26.5 SEC (26.3-35.5)
[2022-12-05 15:13] LABS: CREATININE 1.2 mg/dL (0.5-1.5); POTASSIUM 3.4 mmol/L (3.5-5.1)
== END | disposition home or self-care (01) ==
LOC: LAB 12:51
PROVIDERS: ATTEND Internal Medicine Cardiovascular Disease
DX: I21.19 ST elevation (STEMI) myocardial infarction involving other coronary artery of inferior wall (principal); E11.9 Type 2 diabetes mellitus without complications; I50.41 Acute combined systolic (congestive) and diastolic (congestive) heart failure
CPT/HCPCS: 36415; 80048; 83880; 85025; 85610; 85730

== ENCOUNTER → 2024-03-06 | Outpatient (CLI) | payer OTHER, MEDICARE | END | disposition home or self-care (01) | LOC: SHCH 12:18 | PROVIDERS: ATTEND Internal Medicine Cardiovascular Disease | DX: I73.9 Peripheral vascular disease, unspecified (principal); I87.2 Venous insufficiency (chronic) (peripheral); R06.02 Shortness of breath; R60.9 Edema, unspecified | CPT/HCPCS: 93306; 93925; 93970 ==

== ENCOUNTER 2024-05-26 09:36 | Observation (INO) | payer OTHER, MEDICARE ==
[~2024-05-26] VITALS: Ht 147.3 cm; Wt 59.9 kg
[2024-05-26 11:32] LABS: BASOPHILS # (AUTO) 0.05 K/uL (0.00-0.20); BASOPHILS % (AUTO) 0.9 % (0.0-5.0); EOSINOPHILS % (AUTO) 1.9 % (0.0-8.0); HEMATOCRIT 38.9 % (36-48); IMMATURE GRANULOCYTE ABSOLUTE 0.01 K/uL (0-1); LYMPHOCYTES % (AUTO) 18.2 % (21.0-51.0); MEAN CORPUSCULAR HEMOGLOBIN 32.1 pg (27.0-33.0); MEAN CORPUSCULAR HGB CONC 31.9 g/dL (32.0-36.0); MEAN CORPUSCULAR VOLUME 100.8 fL (79-99); MONOCYTES # (AUTO) 0.5 K/uL (0.1-1.0); MONOCYTES % (AUTO) 8.6 % (3.0-13.0); NEUTROPHILS # (AUTO) 3.7 K/uL (1.8-7.7); NEUTROPHILS % (AUTO) 70.2 % (40.0-77.0); PLATELET COUNT (AUTO) 217 K/uL (130-400); RED BLOOD CELL COUNT(AUTO) 3.86 MIL/uL (4.00-5.50); WHITE BLOOD COUNT (AUTO) 5.3 K/uL (4.8-10.8)
[2024-05-26 11:43] LABS: POTASSIUM 3.7 mmol/L (3.5-5.1)
[2024-05-26 11:46] LABS: ALBUMIN 2.9 g/dL (3.5-5.0); BILIRUBIN,TOTAL 0.8 mg/dL (0.2-1.0); TOTAL PROTEIN, SERUM 7.3 g/dL (6.0-8.3)
[2024-05-26 12:51] LABS: INR 1.04 (0.85-1.15); PROTHROMBIN TIME 11.2 SEC (9.6-11.6)
[2024-05-26 12:52] LABS: PARTIAL THROMBOPLASTIN TIME 28.5 SEC (26.3-35.5)
[2024-05-26] MEDS ORDERED: MORPHINE 2 MG SYG IVP PRN (13:00)
[2024-05-26] MEDS ORDERED: ONDANSETRON 4MG INJ IVP PRN (13:00)
[2024-05-26] MEDS ORDERED: ACETAMINOPHEN 325 MG TAB PO PRN (13:00)
[2024-05-26] MEDS: MORPHINE 2 MG SYG IVP ONE (14:16)
[2024-05-26] MEDS ORDERED: GLIP1TAB5 PO (15:12)
[2024-05-26] MEDS ORDERED: BUME0.5T4 PO (15:12)
[2024-05-26] MEDS ORDERED: HYDRALAZINE 20MG/ML VIAL IV PRN (16:30)
[2024-05-26] MEDS ORDERED: GLUCAGON 1MG KIT 1 MG ML IM PRN (16:30)
[2024-05-26] MEDS: INSULIN HUMULIN R 100 UNIT/ML 3ML SQ SCH (17:16)
[2024-05-26 18:35] VITALS: BP 155/92; PULSE 93; RESP 18
[2024-05-26] MEDS ORDERED: RIVA2.5T PO (18:47)
[2024-05-26 18:49] VITALS: O2SAT 95
[2024-05-26 19:00] VITALS: BP 147/92; PULSE 83; RESP 19
[2024-05-26 20:00] VITALS: O2SAT 95
[2024-05-26] MEDS: FAMOTIDINE 20MG VIAL IV SCH (20:49)
[2024-05-26 23:00] VITALS: BP 112/55; PULSE 71; RESP 19
[2024-05-27] VITALS (9 sets, daily range): BP systolic 130–184; BP diastolic 64–95; PULSE 65–78; RESP 17–20; O2SAT 98
[2024-05-27] MEDS: DEXTROSE 50%-WATER 50 ML DISP.SYRIN IV PRN (15:46)
[2024-05-28 04:00] VITALS: BP 123/71; PULSE 71; RESP 20
[2024-05-28 04:59] LABS: HEMATOCRIT 35.3 % (36-48); MEAN CORPUSCULAR HEMOGLOBIN 31.8 pg (27.0-33.0); MEAN CORPUSCULAR HGB CONC 31.7 g/dL (32.0-36.0); MEAN CORPUSCULAR VOLUME 100.3 fL (79-99); RED BLOOD CELL COUNT(AUTO) 3.52 MIL/uL (4.00-5.50); RED CELL DISTRIBUTION WIDTH 15.9 % (11.0-15.5)
[2024-05-28 05:13] LABS: CREATININE 0.9 mg/dL (0.5-1.0); POTASSIUM 3.4 mmol/L (3.5-5.1)
[2024-05-28 08:00] VITALS: BP 145/70; PULSE 78; RESP 18; O2SAT 98
[2024-05-28] MEDS ORDERED: KCL 20 MEQ ERTAB PO ONE (08:00)
[2024-05-28] MEDS: POTASSIUM CHLORIDE 10% ELIXIR 20 MEQ/15 ML UDCUP PO ONE (11:17)
[2024-05-28 12:00] VITALS: BP 144/75; PULSE 75; RESP 18
== END 2024-05-28 13:00 | disposition home or self-care (01) ==
LOC: EDH 09:36 → INTOOBSV 12:38 → EDHIP 12:38 → 4BH 18:20
PROVIDERS: ADMIT Internal Medicine; ATTEND Internal Medicine
DX: S40.011A Contusion of right shoulder, initial encounter (principal); M79.81 Nontraumatic hematoma of soft tissue; E87.6 Hypokalemia; G47.9 Sleep disorder, unspecified; M79.89 Other specified soft tissue disorders; E78.00 Pure hypercholesterolemia, unspecified; I11.9 Hypertensive heart disease without heart failure; I25.810 Atherosclerosis of coronary artery bypass graft(s) without angina pectoris; E11.51 Type 2 diabetes mellitus with diabetic peripheral angiopathy without gangrene; M13.811 Other specified arthritis, right shoulder; R60.0 Localized edema; Z88.8 Allergy status to other drugs, medicaments and biological substances; Z79.84 Long term (current) use of oral hypoglycemic drugs; Z95.1 Presence of aortocoronary bypass graft; X58.XXXA Exposure to other specified factors, initial encounter; Y93.89 Activity, other specified; Y92.89 Other specified places as the place of occurrence of the external cause; Y99.8 Other external cause status
CPT/HCPCS: 96374; 96375 ×2; 80053; 85025; 85610; 85730; 82948 ×11; 36415 ×2; 73060; 93971; 99291; 96376 ×2; 80048; 85027; J3490 ×4; J2270; J1815 ×2; J7070; G0378 ×2